=== PATIENT | female | born 1990 | race Caucasian/White ===

== ENCOUNTER 2016-06-09 17:39 | Emergency (ER) | payer SELFPAY ==
[~2016-06-09] VITALS: Ht 167.6 cm; Wt 100.0 kg
[2016-06-09 17:45] VITALS: BP 154/72; PULSE 103; RESP 17; TEMP 98.3; O2SAT 98
[2016-06-09] MEDS ORDERED: BACT800T5 PO (17:59)
[2016-06-09] MEDS ORDERED: MUPI2OIN TOPICAL (17:59)
--- NOTE | 2016-06-09 18:00 | PD ---
HPI Chief Complaint: Skin Problem Time Seen by Provider: 17:53 Travel History International Travel<30 days: No Contact w/Intl Traveler<30days: No Traveled to known affect area: No History of Present Illness HPI Patient is a 26-year-old female presenting to the emergency department for evaluation of a skin infection on her nose. Patient noticed a small abrasion several days ago, patient states it started to drain clear yellow fluid and scabs over. She denies any fever, chills, nausea, vomiting, headache. Patient has been applying topical antibiotic ointment. PFSH Past Medical History Medical History: Denies Significant Hx Diminished Hearing: No Immunizations Current: Yes ?: Not Menopausal: No : 1 Para: 1 Past Surgical History Section: Yes Social History Alcohol Use: No Tobacco Use: Yes Substance Use: No Allergies-Medications (Allergen,Severity, Reaction): Coded Allergies: No Known Allergies (Verified , 02/07/16) Reported Meds & Prescriptions Reported Meds & Active Scripts Active No Active Prescriptions or Reported Medications Review of Systems Except as stated in HPI: all other systems reviewed are Neg General / Constitutional: No: Fever HENT: No: Headaches Skin: Positive Change in Pigmentation, Positive Lesions Physical Exam Narrative GENERAL: Well-nourished, well-developed patient. SKIN: Focused skin assessment warm/dry. Scabbed honey-colored lesion to the tip of patient's nose, mildly erythematous surrounding the scab. No active draining noted. HEAD: Normocephalic. EYES: No scleral icterus. No injection or drainage. NECK: Supple, trachea midline. No JVD or lymphadenopathy. CARDIOVASCULAR: Regular rate and rhythm without murmurs, gallops, or rubs. RESPIRATORY: Breath sounds equal bilaterally. No accessory muscle use. GASTROINTESTINAL: Abdomen soft, non-tender, nondistended. MUSCULOSKELETAL: No cyanosis, or edema. BACK: Nontender without obvious deformity. No CVA tenderness. Data Data Last Documented VS Vital Signs Date Time Temp Pulse Resp B/P Pulse Ox O2 Delivery O2 Flow Rate FiO2 06/09/16 17:45 98.3 103 17 154/72 98 MDM Medical Decision Making Medical Screen Exam Complete: Yes Emergency Medical Condition: Yes Interpretation(s) Vital Signs Date Time Temp Pulse Resp B/P Pulse Ox O2 Delivery O2 Flow Rate FiO2 06/09/16 17:45 98.3 103 17 154/72 98 Differential Diagnosis Cellulitis versus abscess versus impetigo versus dermatitis versus other Narrative Course Patient is a 26-year-old female presenting to emergency Department for evaluation of a skin infection. Patient's vital signs are stable, she is afebrile. Physical examination appears most consistent with impetigo. Patient has a honey colored lesion to the tip of her nose. She was advised to avoid picking, scrubbing lesion. Patient was advised that she will be prescribed oral as well as topical antibiotic cream. She is encouraged follow-up with her primary doctor, she was encouraged to return to emergency department for any new or worsening symptoms. Patient verbalized understanding of these instructions. Patient is stable for discharge. Diagnosis Primary Impression: Impetigo Referrals: Primary Care Physician Patient Instructions: General Instructions, Impetigo (ED) Additional Instructions: Complete full course of antibiotics as prescribed Follow-up with your primary doctor Do not pick scab, or scrub it Return to emergency department for any new or worsening symptoms Med/Other Pt SpecificInfo: Prescription(s) given Scripts Mupirocin Topical 2 % Oint1 Applic TOPICAL BID #22 GM Ref 0 Prov:Prerna Soto 06/09/16 Sulfamethoxazole-Trimethoprim (Bactrim DS)800-160 Mg Tab1 Tab PO BID #20 TAB Ref 0 Prov:Prerna Soto 06/09/16 Disposition: 01 DISCHARGE HOME Condition: Stable Prerna Soto Jun 09, 2016 18:00
== END 2016-06-09 18:10 | disposition home or self-care (01) ==
LOC: NETRI 17:39
DX: L01.00 Impetigo, unspecified (principal); F17.210 Nicotine dependence, cigarettes, uncomplicated
CPT/HCPCS: 99282

== ENCOUNTER 2016-12-30 15:03 | Emergency (ER) | payer SELFPAY ==
[~2016-12-30] VITALS: Ht 167.6 cm; Wt 98.0 kg
[~2016-12-30 15:03] MED LIST: BACT800T5 PO; MUPI2OIN TOPICAL
[2016-12-30 15:05] VITALS: BP 175/106; PULSE 105; RESP 15; TEMP 98.4; O2SAT 98
[2016-12-30] MEDS ORDERED: LIDOCAINE HCL 1% 50 ML VIAL INFIL ONE (20:30)
--- NOTE | 2016-12-30 20:36 | PD ---
HPI Chief Complaint: Skin Problem Time Seen by Provider: 20:11 Travel History International Travel<30 days: No Contact w/Intl Traveler<30days: No Traveled to known affect area: No History of Present Illness HPI 26yo F with no PMH presents to the ED with c/o a bump in right face for 2 weeks. Said she had popped a pimple there a while ago. Denies any fever, chest pain, visual changes, n/v, abdominal pain, focal weakness or numbness. PFSH Past Medical History Medical History: Denies Significant Hx Diminished Hearing: No Immunizations Current: Yes Tetanus Vaccination: > 5 Years ?: Not LMP: 12/11/2016 Menopausal: No : 1 Para: 1 Past Surgical History Section: Yes Social History Alcohol Use: No Tobacco Use: Yes Substance Use: No Allergies-Medications (Allergen,Severity, Reaction): Coded Allergies: No Known Allergies (Verified , 12/30/16) Reported Meds & Prescriptions Reported Meds & Active Scripts Active Review of Systems Except as stated in HPI: all other systems reviewed are Neg Physical Exam Narrative GENERAL: 26yo F not in distress. SKIN: Focused skin assessment warm/dry. HEAD:+1.5cm fluctuance in right maxilla that is circular. EYES: Pupils equal and round. No scleral icterus. No injection or drainage. ENT: No nasal bleeding or discharge. Mucous membranes pink and moist. NECK: Trachea midline. No JVD. CARDIOVASCULAR: Regular rate and rhythm. No murmur appreciated. RESPIRATORY: No accessory muscle use. Clear to auscultation. Breath sounds equal bilaterally. GASTROINTESTINAL: Abdomen soft, non-tender, nondistended. MUSCULOSKELETAL: No obvious deformities. No clubbing. No cyanosis. No edema. NEUROLOGICAL: Awake and alert. No obvious cranial nerve deficits. Motor grossly within normal limits. Normal speech. PSYCHIATRIC: Appropriate mood and affect; insight and judgment normal. Data Data Last Documented VS Vital Signs Date Time Temp Pulse Resp B/P (MAP) Pulse Ox O2 Delivery O2 Flow Rate FiO2 12/30/16 15:05 98.4 105 15 175/106 (129) 98 Orders Orders Lidocaine 1% Inj (50 Ml) (Xylocaine 1% I (12/30/16 20:30) Acetaminophen (Tylenol) (12/30/16 22:15) [facility] Medical Decision Making Medical Screen Exam Complete: Yes Emergency Medical Condition: Yes Differential Diagnosis Facial abscess Narrative Course 26yo F with right facial abscess. Pt understands that she will have a scar and wants me to drain it. I&D completed and decision was made not to pack it so that I do not have to make a bigger incision because of the location of the abscess. Pt instructed to return if any signs of infection or reaccumulation of abscess. Procedures Procedure Narrative INCISION AND DRAINAGE OF ABSCESS: The area was prepped and was sterilely draped. A subcutaneous wheal of 1 % Xylocaine with a total number 2 mL was used to anesthetize the area properly. A number 11 scalpel was used to make a 0.2-cm incision across the area of the abscess. The abscess was drained. Decision was made not to put packing so we dont have to make the incision bigger. Pt understands that abscess can reaccumulate and will return if it does. Diagnosis Primary Impression: Facial abscess Patient Instructions: General Instructions Departure Forms: Tests/Procedures Additional Instructions: Please follow up with [facility] in 2 days for wound check. Please return to the ED if you have fever, worsening pain, signs of infection or reaccumulation of pus. Med/Other Pt SpecificInfo: Prescription(s) given Scripts Acetaminophen (Tylenol) 325 Mg Tab 650 MG PO Q6H Y for PAIN SCALE 1 TO 4, #20 TAB 0 Refills Prov: Marva Hanson 12/30/16 Disposition: 01 DISCHARGE HOME Condition: Stable HansonJanel greenfieldmandy ACUÑA Dec 30, 2016 20:36
[2016-12-30] MEDS ORDERED: ACETAMINOPHEN 325 MG TAB PO ONE (22:15)
[2016-12-30] MEDS ORDERED: TYLE325T PO (22:40)
== END 2016-12-30 23:21 | disposition home or self-care (01) ==
LOC: NEPD 15:03
DX: L02.01 Cutaneous abscess of face (principal); Z72.0 Tobacco use
CPT/HCPCS: 10060

== ENCOUNTER 2017-03-21 15:15 | Emergency (ER) | payer SELFPAY ==
[~2017-03-21] VITALS: Ht 167.6 cm; Wt 100.0 kg
[~2017-03-21 15:15] MED LIST changes: -BACT800T5 PO; -MUPI2OIN TOPICAL; +TYLE325T PO
[2017-03-21 15:18] VITALS: BP 120/70; PULSE 87; RESP 14; TEMP 97.7; O2SAT 99
--- NOTE | 2017-03-21 22:51 | PD ---
Physical Exam Date Seen by Provider: Mar 21, 2017 Time Seen by Provider: 19:10 Narrative 27-year-old female presents to the emergency department for evaluation of mouth pain that radiates to her ear and throat for 2 days. She currently rates pain 12/17. Data Data Last Documented VS Vital Signs Date Time Temp Pulse Resp B/P (MAP) Pulse Ox O2 Delivery O2 Flow Rate FiO2 03/21/17 15:18 97.7 87 14 120/70 (87) 99 MDM Supervised Visit with [facility]: No Narrative Course 27-year-old female presents to the emergency department for dental pain for 2 days. Patient initially seen and evaluated in triage. She left AGAINST MEDICAL ADVICE before being moved to medical bed. Diagnosis Primary Impression: Left against medical advice Additional Impression: Pain, dental Disposition: 07 AGAINST MEDICAL ADVICE Angie Alarcon Mar 21, 2017 22:51
== END 2017-03-21 19:10 | disposition left against medical advice (07) ==
LOC: NED 15:15
DX: K08.89 Other specified disorders of teeth and supporting structures (principal)
CPT/HCPCS: 99281